=== PATIENT | female | born 1995 | race Caucasian/White ===

== ENCOUNTER 2018-03-26 15:19 | Emergency (ER) | payer SELFPAY ==
[2018-03-26 17:48] LABS: BASO % 0.2 % (0.0-1.0); EOS # 0.1 10^3/uL (0.0-0.50); EOS % 0.8 % (0.0-3.0); HEMATOCRIT 40.7 % (36.0-47.0); HEMOGLOBIN 13.5 g/dl (12.0-15.5); IMMATURE GRANULOCYTE % 0.3 % (0-3.0); LYMPH # 2.5 10^3/uL (1.5-6.5); LYMPH % 23.6 % (24.0-44.0); MEAN CORPUSCULAR HEMOGLOBIN 28.8 pg (27.0-33.0); MEAN CORPUSCULAR HGB CONC 33.2 g/dl (32.0-36.5); MONO # 0.6 10^3/uL (0.0-0.8); MONO % 5.5 % (0.0-5.0); NEUTROPHILS # 7.2 10^3/uL (1.8-7.7); NEUTROPHILS % 69.6 % (36.0-66.0); PLATELET COUNT, AUTOMATED 423 10^3/uL (150-450); RED BLOOD COUNT 4.68 10^6/uL (4.00-5.40); RED CELL DISTRIBUTION WIDTH 13.2 % (11.5-14.5); WHITE BLOOD COUNT 10.4 10^3/uL (4.0-10.0)
== END 2018-03-26 18:13 | disposition home or self-care (01) ==
LOC: M ED 15:19
DX: N93.8 Other specified abnormal uterine and vaginal bleeding (principal); N94.6 Dysmenorrhea, unspecified
CPT/HCPCS: 85025

== ENCOUNTER 2021-05-15 14:41 | Emergency (ER) | payer OTHER, SELFPAY ==
[~2021-05-15] VITALS: Ht 175.3 cm; Wt 141.4 kg
[2021-05-15 14:41] VITALS: BP_DIAS 81
[~2021-05-15 14:41] MED LIST: HYDR-3715 PO
--- NOTE | 2021-05-15 17:32 | REP ---
INDICATION: r shoulder pain. COMPARISON: None. TECHNIQUE: Three views of the right shoulder were performed. FINDINGS: The acromioclavicular and glenohumeral relationships are within normal limits. There is no acute fracture or destructive osseous lesion. IMPRESSION: Within normal limits <Electronically signed by Gavin Saavedra > 05/15/21 [id number]
[2021-05-15 18:05] VITALS: BP_SYST 62
== END 2021-05-15 18:06 | disposition home or self-care (01) ==
LOC: M ED 14:41
DX: M25.511 Pain in right shoulder (principal)